=== PATIENT | female | born 1985 | race Caucasian/White ===

== ENCOUNTER 2017-11-11 13:06 | Emergency (ER) | payer MEDICAID, OTHER | END 2017-11-11 15:10 | disposition left against medical advice (07) | LOC: FTE 13:06 | DX: O26.891 Other specified pregnancy related conditions, first trimester (principal); R10.10 Upper abdominal pain, unspecified; Z3A.08 8 weeks gestation of pregnancy | CPT/HCPCS: 99282; Z7502 ==

== ENCOUNTER 2018-06-17 12:53 | Outpatient (CLI) | payer OTHER, MEDICAID | END 2018-06-17 16:09 | disposition home or self-care (01) | LOC: OBT 12:53 → L-D 12:53 → OBT 16:09 | DX: O36.5930 Maternal care for other known or suspected poor fetal growth, third trimester, not applicable or unspecified (principal); Z3A.38 38 weeks gestation of pregnancy | CPT/HCPCS: 76815; 76818 ==

== ENCOUNTER 2018-07-01 14:15 | Inpatient (IN) | payer OTHER ==
[2018-07-01] MEDS ORDERED: MISOPROSTOL 200 MCG TAB PR (14:30)
[2018-07-01] MEDS ORDERED: OXYCODONE/ACETAMINOPHEN (5/325) TAB PO (14:30)
[2018-07-01] MEDS ORDERED: METHYLERGONOVINE 0.2 MG INJ IM (14:30)
[2018-07-01] MEDS ORDERED: BUTORPHANOL 2 MG INJ IV (14:30)
[2018-07-01] MEDS ORDERED: LIDOCAINE 1% (MPF) 30 ML INJ INJ (14:30)
[2018-07-01] MEDS ORDERED: CARBOPROST 250 MCG INJ IM (14:30)
[2018-07-01] MEDS ORDERED: OXYTOCIN 30 UNITS/LR 500 ML IV (14:30)
[2018-07-01] MEDS ORDERED: IBUPROFEN 600 MG TAB PO (14:30)
[2018-07-01] MEDS: LACTATED RINGER'S 1,000 ML IV (15:15)
[2018-07-01 15:45] LABS: ADD MAN DIFF? NO
[2018-07-01 15:50] LABS: BASOPHILS % 0.3 % (0.0-2.0); EOSINOPHILS # 0.1 10^3/ul (0.0-0.5); EOSINOPHILS % 0.9 % (0.0-7.0); HEMATOCRIT 33.7 % (37.0-47.0); HEMOGLOBIN 11.5 g/dl (12.0-16.0); LYMPHOCYTES # 1.5 10^3/ul (0.8-2.9); LYMPHOCYTES % 23.3 % (15.0-51.0); MEAN CORPUSCULAR HEMOGLOBIN 31.1 pg (29.0-33.0); MEAN CORPUSCULAR HGB CONC 34.1 g/dl (32.0-37.0); MEAN CORPUSCULAR VOLUME 91.1 fl (82.0-101.0); MEAN PLATELET VOLUME 12.1 fl (7.4-10.4); MONOCYTE # 0.5 10^3/ul (0.3-0.9); MONOCYTES % 7.5 % (0.0-11.0); NEUTROPHIL # 4.3 10^3/ul (1.6-7.5); NEUTROPHILS % 67.1 % (39.0-77.0); PLATELET COUNT 146 10^3/UL (140-415); RED CELL DISTRIBUTION WIDTH 12.8 % (11.5-14.5)
[2018-07-01 15:50] LABS: WHITE BLOOD COUNT 6.4 10^3/ul (4.8-10.8)
[2018-07-01] MEDS ORDERED: CLINDAMYCIN 900 MG/D5W (PMX) 50 ML IVPB (16:00)
[2018-07-01 16:11] LABS: INR 0.89; PARTIAL THROMBOPLASTIN TIME 29.8 Sec (23.0-35.0); PROTIME 12.2 Sec (11.9-14.9)
[2018-07-01] MEDS: MISOPROSTOL 50 MCG CAPSULE PO ×3 (16:41→21:00)
[2018-07-01] MEDS: VANCOMYCIN 1 GM (PMX) 250 ML IVPB (17:44)
[2018-07-01] MEDS ORDERED: MINERAL OIL LIGHT 10 ML VIAL TOP (20:00)
[2018-07-02] MEDS: LACTATED RINGER'S 1,000 ML IV ×4 (00:57→14:47)
[2018-07-02] MEDS: VANCOMYCIN 1 GM (PMX) 250 ML IVPB ×2 (05:07→17:00)
[2018-07-02] MEDS: OXYTOCIN 30 UNITS/LR 500 ML IV ×4 (05:50→22:16)
[2018-07-02] MEDS ORDERED: FENTAnyl 2MCG/ML-ROPIV 0.2% 100 ML (12:15)
[2018-07-02] MEDS ORDERED: NALOXONE (0.4 MG/ML) INJ IV (12:30)
[2018-07-02] MEDS: FENTAnyl 2MCG/ML-ROPIV 0.2% 100 ML BAG EPI (14:47)
[2018-07-02] MEDS ORDERED: LANOLIN HPA 1 PKT TOP (18:00)
[2018-07-02] MEDS ORDERED: CARBOPROST 250 MCG INJ IM (18:00)
[2018-07-02] MEDS ORDERED: METHYLERGONOVINE 0.2 MG INJ IM (18:00)
[2018-07-02] MEDS ORDERED: OXYCODONE/ASPIRIN (4.88/325) TAB PO (18:00)
[2018-07-02] MEDS ORDERED: OXYTOCIN 30 UNITS/LR 500 ML IV (18:00)
[2018-07-02] MEDS ORDERED: SENNA/DOCUSATE NA (8.6MG/50MG) TAB PO (18:00)
[2018-07-02] MEDS ORDERED: ONDANSETRON 4 MG INJ IV (18:00)
[2018-07-02] MEDS ORDERED: ACETAMINOPHEN 325 MG TAB PO (18:00)
[2018-07-02] MEDS ORDERED: NACL 0.9% 3 ML SYG IV (18:00)
[2018-07-02] MEDS ORDERED: MISOPROSTOL 200 MCG TAB PR (18:00)
[2018-07-02] MEDS: IBUPROFEN 600 MG TAB PO (18:06)
[2018-07-02 18:49] LABS: RAPID PLASMA REAGIN NONREACTIVE (NR)
[2018-07-02] MEDS: WITCH HAZEL/GLYCERIN PAD PR (21:06)
[2018-07-02] MEDS: SENNA/DOCUSATE NA (8.6MG/50MG) TAB PO (21:06)
[2018-07-02] MEDS: BENZOCAINE 20% 56 ML SPRAY TOP (21:06)
[2018-07-02] MEDS: MINERAL OIL LIGHT 10 ML VIAL TOP (22:20)
[2018-07-02] MEDS: OXYCODONE/ASPIRIN (4.88/325) TAB PO (22:26)
[2018-07-03] MEDS: IBUPROFEN 600 MG TAB PO ×5 (00:25→23:59)
[2018-07-03 08:21] LABS: ADD MAN DIFF? NO
[2018-07-03 08:30] LABS: BASOPHILS % 0.2 % (0.0-2.0); EOSINOPHILS % 0.4 % (0.0-7.0); HEMATOCRIT 35.5 % (37.0-47.0); HEMOGLOBIN 11.6 g/dl (12.0-16.0); LYMPHOCYTES # 1.7 10^3/ul (0.8-2.9); LYMPHOCYTES % 17.8 % (15.0-51.0); MEAN CORPUSCULAR HEMOGLOBIN 30.6 pg (29.0-33.0); MEAN CORPUSCULAR HGB CONC 32.7 g/dl (32.0-37.0); MEAN CORPUSCULAR VOLUME 93.7 fl (82.0-101.0); MEAN PLATELET VOLUME 12.6 fl (7.4-10.4); MONOCYTE # 0.7 10^3/ul (0.3-0.9); MONOCYTES % 7.8 % (0.0-11.0); NEUTROPHIL # 6.9 10^3/ul (1.6-7.5); NEUTROPHILS % 72.9 % (39.0-77.0); PLATELET COUNT 147 10^3/UL (140-415); RED BLOOD COUNT 3.79 10^6/ul (4.20-5.40); RED CELL DISTRIBUTION WIDTH 13.1 % (11.5-14.5)
[2018-07-03 08:30] LABS: WHITE BLOOD COUNT 9.4 10^3/ul (4.8-10.8)
[2018-07-03] MEDS: SENNA/DOCUSATE NA (8.6MG/50MG) TAB PO ×2 (08:56→21:38)
[2018-07-03 08:58] LABS: BLOOD UREA NITROGEN 8 mg/dl (7-20)
[2018-07-04] MEDS: IBUPROFEN 600 MG TAB PO ×3 (06:19→17:26)
[2018-07-04] MEDS: WITCH HAZEL/GLYCERIN PAD PR (10:01)
[2018-07-04] MEDS: SENNA/DOCUSATE NA (8.6MG/50MG) TAB PO (10:02)
== END 2018-07-04 17:50 | disposition home or self-care (01) | DRG 807 ==
LOC: L-D 14:15 → PP1 07-02 20:05
PROVIDERS: Obstetrics & Gynecology
PROC: 10E0XZZ Delivery of Products of Conception, External Approach (ICD-10-PCS; principal; 2018-07-02)
PROC: 3E033VJ Introduction of Other Hormone into Peripheral Vein, Percutaneous Approach (ICD-10-PCS; 2018-07-02)
DX: O48.0 Post-term pregnancy (principal); Z37.0 Single live birth; Z3A.41 41 weeks gestation of pregnancy
CPT/HCPCS: 62319; 76815; 82565; 84520; 85025; 85610; 85730; 86592; 86850; 86900; 86901; 99464

== ENCOUNTER 2018-12-24 16:16 | Emergency (ER) | payer OTHER ==
[2018-12-24] MEDS: IBUPROFEN 800 MG TAB PO (17:03)
== END 2018-12-24 18:09 | disposition home or self-care (01) ==
LOC: FTE 16:16
DX: M54.6 Pain in thoracic spine (principal)
CPT/HCPCS: 72072; 81025; 99283-25